=== PATIENT | male | born 1985 | race Caucasian/White ===

== ENCOUNTER → 2022-05-13 12:49 | Outpatient (CLI) | payer OTHER, SELFPAY ==
--- NOTE | ~2022-05-13 | XR_ITS ---
XR fl inj shoulder RT - MR/CT DATE: 05/13/2022 13:49 INDICATION: Chronic right shoulder pain TECHNIQUE: The purpose of the procedure, technique and potential complications were discussed with pepe e patient. Gated understanding and gave consent. The right arm was placed in appropriate position. A spot along the anterior aspect of the left should er for percutaneous access was marked using fluoroscopic guidance. The skin was made with sterile Bet adine solution. Sterile drape was applied. 1% lidocaine local anesthetic was administered to the skin and underlying subcutaneous tissues. A 22- gauge spinal needle was introduced into the glenohumeral joint space from an anterior approach using fluoroscopic guidance. 12 CC of mixed diluted contrast agent including MR contrast agent and Omnipaqu e 350 was injected, with fluoroscopic confirmation of appropriate intra-articular position of the con trast material. The patient was very cooperative and tolerated the procedure very well without complaint or apparent complication. IMPRESSION: Successful pre-MRI shoulder examination intra-articular injection of dilute MR contrast a gent Reviewed, dictated and finalized at [facility]. Reviewed, dictated and finalized at [facility]. IMPRESSION: Successful pre-MRI shoulder examination intra-articular injection o f dilute MR contrast agent
--- NOTE | ~2022-05-13 | MR_ITS ---
EXAMINATION: MR shoulder RT w con DATE: 05/13/2022 14:37 INDICATION: Chronic right shoulder pain TECHNIQUE: Magnetic resonance imaging (MRI) of the right shoulder was performed following intra-lenard cular gadolinium contrast injection and without intravenous contrast. Details of the glenohumeral marlon nt injection have been dictated separately. Sequences included axial T2-weighted FS FSE, axial T1-we ighted FS FSE, coronal oblique T1-weighted FS FSE, coronal oblique T2-weighted FSE, sagittal T2-weigh tyson FS FSE, sagittal T1-weighted FSE, and ABER (abduction external rotation) T1-weighted FS FSE. COMPARISON: None. FINDINGS: Coracoacromial arch: The acromion undersurface is curved in morphology (type II). The coracoacromial ligament is normal. A cromioclavicular joint is normal. Rotator cuff: The supraspinatus, infraspinatus and teres minor are normal. The subscapularis is normal. Normal rota tor cuff muscle bulk and signal. Biceps tendon, glenoid labrum and glenohumeral cartilage: Long head of the biceps tendon is intact. Glenoid labrum and glenohumeral cartilage are normal with n ormal anterosuperior sublingual foramen.. Bones and other: Normal marrow signal with no edema, fracture or abnormal marrow replacing process. Very small amount of fluid in the subacromial bursa consistent with minimal bursitis. IMPRESSION: 1. Minimal subacromial bursitis. Otherwise unremarkable right shoulder MR arthrogram. Reviewed, dictated and finalized at location [facility]. IMPRESSION: 1. Minimal subacromial bursitis. Otherwise unremarkable right shoulder MR arthr ogram.
== END ==
PROVIDERS: PCP Internal Medicine; Visit Provider Orthopaedic Surgery
DX: M25.511 Pain in right shoulder (principal); G89.29 Other chronic pain
CPT/HCPCS: 23350; 73222; 77002; A9577; Q9967